=== PATIENT | male | born 1950 | race Caucasian/White ===

== ENCOUNTER 2019-11-21 10:43 | Observation (INO) ==
--- NOTE | 2019-11-21 10:57 | CT Scan Report ---
CT head/brain wo con CT DOSE: 537.48 mGy.cm HISTORY: Mental status change Stroke Alert TECHNIQUE: Multiaxial CT images of the head were performed without the use of intravenous contrast. A dose lowering technique was utilized adhering to the principles of ALARA. Comparison: None. Findings: The paranasal sinuses and mastoid air cells are clear. The calvarium and skull base are int act. The ventricles and sulci are within normal limits. There is no mass, hematoma, midline shift, or acute infarct. 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 The ventricular system is midline. No evidence for a cute intracranial hemorrhage. Impression: 1. No acute intracranial abnormality. 2. 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 ACT 112: Negative or not required by law. The above report was generated using voice recognition software. It may contain grammatical, syntax or spelling errors. Electronically signed by: Luis Felipe Kwok M.D. 11/21/2019 10:56 AM
[2019-11-21 11:18] LABS: Hematocrit (blood only) 42.4 % (42-52); Hemoglobin 14.9 g/dL (14.0-18.0); Mean Corpuscular Hemoglobin 31.6 pg (25-34); Mean Corpuscular Hgb Conc 35.1 g/dL (32-36); Mean Platelet Volume 11.8 fL (7.4-10.4); Platelet Count 254 K/uL (130-400); RDW Coefficient of Variation 13.6 % (11.5-14.5); RDW Standard Deviation 44.7 fL (36.4-46.3); Red Blood Count 4.71 M/uL (4.7-6.1); White Blood Count 7.18 K/uL (4.8-10.8)
[2019-11-21 11:32] LABS: INR 1.1 (0.9-1.1); Partial Thromboplastin Time 27.9 Seconds (21.0-31.0); Prothrombin Time 11.2 Seconds (9.0-12.0)
[2019-11-21 11:37] LABS: Albumin Level 4.3 gm/dl (3.4-5.0); BUN Creatinine Ratio 13.5 (10-20); Calcium 9.7 mg/dl (8.5-10.1); Creatinine Clr Calc Pharmacy 52.8 ml/min; Est GFR (African American) 73.6; Est GFR (Non-African American) 63.5; Magnesium 2.3 mg/dl (1.8-2.4); Potassium 3.8 mmol/L (3.5-5.1)
[2019-11-21 11:40] LABS: Albumin Globulin Ratio 1.5 (0.9-2); Bilirubin,Total 0.6 mg/dl (0.2-1); Globulin 2.9 gm/dl (2.5-4.0); Total Protein 7.2 gm/dl (6.4-8.2)
--- NOTE | 2019-11-21 11:41 | XRay Report ---
XR chest 1V portable CLINICAL HISTORY: stroke alert mental status change COMPARISON STUDY: No previous studies for comparison. FINDINGS: The bones soft tissues and hemidiaphragms are normal. The cardiomediastinal silhouette is n ormal. The lungs are clear. The pulmonary vasculature is normal. IMPRESSION: Negative chest. ACT 112: Negative or not required by law. The above report was generated using voice recognition software. It may contain grammatical, syntax or spelling errors. Electronically signed by: Luis Felipe Kwok M.D. 11/21/2019 11:40 AM
--- NOTE | 2019-11-21 12:59 | History & Physical Report ---
Date of Service November 21, 2019 Assessment & Plan (1) Transient ischemic attack: Admit to PCU on telemetry Reviewed MRI/MRA brain head and neck Consult neurology Continue Plavix 75 p.o. daily Continue atorvastatin 40 mg p.o. nightly continue Continue vitamin B12 500 MCG's p.o. every morning Continue vitamin D 2000 units p.o. every morning Continue multivitamins 1 tablet p.o. every morning Continue omega fish oil 1000 mg p.o. daily Continue monitoring blood pressure and taking valsartan 160 mg/hydrochlorothiazide 25 mg 1 tablet p.o. daily. DVT prophylaxis SCDs and teds patient is ambulatory Full code Present on Admission?: Yes (2) Visual disturbance: Resolved Continue management as above Present on Admission?: Yes (3) Hyperlipidemia: Continue atorvastatin 40 mg p.o. nightly Lipid panel pending Present on Admission?: Yes (4) CVA, old, disturbances of vision: Continue management as the above Present on Admission?: Yes (5) Aortic regurgitation: Continue monitoring Present on Admission?: Yes (6) Hypertension: Continue valsartan 160 mg/hydrochlorothiazide 25 mg p.o. every morning Present on Admission?: Yes (7) Gout: Continue allopurinol 200 mg p.o. every afternoon. Present on Admission?: Yes History of Present Illness Chief Complaint: transient neuro deficit Primary Care Provider: Janusz Sullivan The patient is a 69 years old male with past medical history of CVA with visual disturbance in his right eye, aortic regurgitation and hypertension who presents to the emergency room with a complaint of an episode of neurological symptoms that started and hour and 10 minutes ago. Patient states that he had a history of ischemic stroke in the January 2019. Patient reports that when he had that stroke he had only symptoms with his vision in the right side. At that time patient was not given TPA because he arrived late. Since patient had this CVA he has been on Plavix. He is followed by neurologist Dr. Parra. Patient stated that he was running a treadmill when he started to notice that he could no longer see the screen and the panel in front of him. He stated that it was like a blue revision in front of him. After arrival to the emergency room his vision returned back to normal. Patient denies any difficulty of speaking, balance, moving his arms and lower extremities grimacing etc. Patient denies fever, chills, chest pain, shortness of breath, abdominal pain, frequency, urgency. His labs were reviewed reviewed which shows WBCs of 7.18, hemoglobin 14.9, hematocrit 42.4, platelets 254. PT 11.3, INR 1.1, APTT 29.1. Sodium 138, potassium 3.8, chloride 103, anion gap 4, BUN 16, creatinine 1.18, GFR 63.5 glucose 111 troponin 0.015. MRI of the brain: Chronic small vessel ischemic changes. No acute intracranial abnormality. 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 The intracranial vasculature is otherwise unremarkable. 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 Otherwise no dissection or significant stenosis or focal vessel occlusion. The case was discussed with Dr. Castro neurologist at [facility] and she recommended to do MRI/MRA brain head and neck and to continue Plavix. She recommended not to start aspirin at this time. Decision was made to admit patient to PCU on telemetry for possible stroke versus transient ischemic attack. Allergies Allergy/AdvReac Type Severity Reaction Status Date / Time No Known Allergies Allergy Verified 11/21/19 11:49 Home Medications Home Medications Medication Instructions Recorded Confirmed Type allopurinol 100 mg tablet 200 mg PO PM tab 07/02/19 11/21/19 History cholecalciferol (vitamin D3) 50 2,000 units PO QAM 07/02/19 11/21/19 History mcg (2,000 unit) capsule multivitamin 1 tab PO QAM 07/02/19 11/21/19 History omega-3 fatty acids 1,000 mg 3,000 mg PO QAM cap 07/02/19 11/21/19 History capsule valsartan 160 1 tab PO QAM 07/02/19 11/21/19 History mg-hydrochlorothiazide 25 mg tablet butenafine 1 % topical cream 1 appln TOP BID 09/04/19 11/21/19 History mecobalamin (vitamin B12) 500 mcg PO QAM 09/04/19 11/21/19 History atorvastatin 40 mg PO HS 11/21/19 11/21/19 History clopidogrel 75 mg PO QAM 11/21/19 11/21/19 History Past Med/Surg History Medical History Aortic regurgitation (Chronic) CVA, old, disturbances of vision (Chronic) Gout Hyperlipidemia (Chronic) Hypertension (Chronic) Family History Father Heart disease Mother COPD (chronic obstructive pulmonary disease) Brother Diabetes Uncle Stroke Social History Preferred Language: Persian Communication Ability: Effective Head Irrigator Required: No Beliefs That Will Affect Care: None marital status: Current Living Situation: Spouse Feels Safe at Home: Yes Smoking Status: Never smoker Second Hand Exposure: No ; Hx Alcohol Use: Yes Alcohol type: wine and hard liquor Hx Substance Use: No Review of Systems Review of Systems: All systems reviewed & are unremarkable except as noted in HPI & below Physical Exam Constitutional: WD/WN, vitals as above well developed Eyes: normal visual petersen by confrontation ENMT: external ear and nose normal, oropharynx normal Neck: trachea midline, no thyromegaly Respiratory: normal respiratory effort, lungs clear to auscultation Cardiovascular: Heart Sounds: normal S1, normal S2 and + murmur Palpation: + thrill Vessels: dorsalis pedis pulses present Gastrointestinal (Abdomen): normal bowel sounds, soft, nontender, no hepatosplenomegaly Musculoskeletal: no cyanosis or clubbing, extremities motor strength 5/5 Skin: no rashes, warm and dry Neurologic: patellar DTR's 2+ bilat, sensation intact Psychiatric: A+Ox3, euthymic affect Lymphatic: no cervical or axillary lymphadenopathy Results & Data Vital Signs (Past 12 Hours) Vital Signs Temp Pulse Pulse Resp BP BP Pulse Ox 11/21/19 11:38 51 L 20 117/71 98 11/21/19 11:30 58 L 129/75 97 11/21/19 11:17 56 L 18 147/75 H 97 11/21/19 11:02 97 11/21/19 11:00 62 18 161/84 H 97 11/21/19 10:45 36.3 C L 56 L 16 114/69 95 Code Status & VTE Plan Code Status Full code VTE Prophylaxis Plan VTE Prophylaxis will be ordered: Yes PG Care Time/CCT Total # of Minutes Spent Total Time Spent with Patient: Total time spent is greater than 50% in coordination of care (as documented) at patient's floor/unit and/or counseling patient: Coding Level of Care Code 41153 Initial Inpt Care Lvl 3 Diagnoses Transient ischemic attack G45.9 Visual disturbance H53.9 Hyperlipidemia E78.5 CVA, old, disturbances of vision I69.398; H53.9 Aortic regurgitation I35.1 Hypertension I10 Gout M10.9
[2019-11-21] MEDS ORDERED: LORazepam 1 MG/2 ML VIAL IV STA (13:02)
--- NOTE | 2019-11-21 13:11 | Emergency Department Note ---
Entered by Imelda Chapa acting as a scribe for Vickey Drake MD History of Present Illness General Chief complaint: Neuro Symptoms/Deficit Stated complaint: ALTERED VISION HX STROKE Time Seen by Provider: 11/21/19 10:50 Source: patient History of Present Illness Onset (ago): hour(s) 1 (and 10 minutes ago) Location: head and eyes Pain Consistency: + other (episode) Maximum Pain Intensity: 0 Quality: + other (neurological symptoms) Associated symptoms: + denies other symptoms (difficulty speaking, issues with his balance, difficulty moving his arms, difficulty moving his legs) and + other (left sided vision blurriness) The patient is a 69 year old male who presents to the Emergency Room with complaints of an episode of neurological symptoms starting an hour and 10 minutes ago. The patient states that he had a history of an ischemic stroke in the back of his head last January. He reports that when he had that stroke, his only symptom was a change in his vision on the right side. He notes that he was not given TPA as it was too late to. He notes that he has suffered from a right visual field deficit since then and has been on Plavix. He notes that he has been following with Dr. Parra. The patient states that today he was on the Stair Master at home when he started to notice that he could no longer see the screen and panel in front of him. He states that it was like it was blurry when it was in front of him. The patient denies difficulty speaking, issues with his balance, difficulty moving his arms, difficulty moving his legs, and doing anything different or unusual over the last few days. Home Medications Home Medications Medication Instructions Recorded Confirmed Type allopurinol 100 mg tablet 200 mg PO PM tab 07/02/19 11/21/19 History cholecalciferol (vitamin D3) 50 2,000 units PO QAM 07/02/19 11/21/19 History mcg (2,000 unit) capsule multivitamin 1 tab PO QAM 07/02/19 11/21/19 History omega-3 fatty acids 1,000 mg 3,000 mg PO QAM cap 07/02/19 11/21/19 History capsule valsartan 160 1 tab PO QAM 07/02/19 11/21/19 History mg-hydrochlorothiazide 25 mg tablet butenafine 1 % topical cream 1 appln TOP BID 09/04/19 11/21/19 History mecobalamin (vitamin B12) 500 mcg PO QAM 09/04/19 11/21/19 History atorvastatin 40 mg PO HS 11/21/19 11/21/19 History clopidogrel 75 mg PO QAM 11/21/19 11/21/19 History Allergies Allergy/AdvReac Type Severity Reaction Status Date / Time No Known Allergies Allergy Verified 11/21/19 11:49 Past Med/Surg History Medical History Aortic regurgitation (Chronic) CVA, old, disturbances of vision (Chronic) Gout Hyperlipidemia (Chronic) Hypertension (Chronic) Family History Father Heart disease Mother COPD (chronic obstructive pulmonary disease) Brother Diabetes Uncle Stroke Social History Preferred Language: Slovak Communication Ability: Effective 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 and A total of 10 systems reviewed and were otherwise negative Physical Exam Vital Signs Vital Signs - 24 hr 11/21/19 10:45 11/21/19 11:00 11/21/19 11:02 Temperature 36.3 C L Temperature Source Oral Pulse Rate 56 L Pulse Rate [Apical] 62 Pulse Rate from SpO2 Sensor Respiratory Rate 16 18 Respiratory Effort / Characteristics Respiratory Depth Normal Respiratory Pattern Blood Pressure 114/69 Blood Pressure [Right Arm] 161/84 H Blood Pressure Mean 84 Blood Pressure Mean [Right Arm] 109 Blood Pressure Position Sitting Pulse Oximetry 95 97 97 Oxygen Delivery Method Nasal Cannula Room Air Room Air Sepsis Recent Fever Within 48 Hours No Sepsis New/Unexplained Change in Mental Status No Sepsis Action Taken by Nursing No Action Required 11/21/19 11:17 11/21/19 11:30 11/21/19 11:38 Temperature Temperature Source Pulse Rate 58 L Pulse Rate [Apical] 56 L 51 L Pulse Rate from SpO2 Sensor 58 L Respiratory Rate 18 20 Respiratory Effort / Characteristics Non-Labored Spontaneous Respiratory Depth Normal Respiratory Pattern Regular Blood Pressure 129/75 Blood Pressure [Right Arm] 147/75 H 117/71 Blood Pressure Mean 89 Blood Pressure Mean [Right Arm] 99 86 Blood Pressure Position Pulse Oximetry 97 97 98 Oxygen Delivery Method Room Air Room Air Room Air Sepsis Recent Fever Within 48 Hours Sepsis New/Unexplained Change in Mental Status Sepsis Action Taken by Nursing 11/21/19 11:39 11/21/19 12:00 Temperature Temperature Source Pulse Rate 55 L 52 L Pulse Rate [Apical] Pulse Rate from SpO2 Sensor 55 L 52 L Respiratory Rate 16 Respiratory Effort / Characteristics Respiratory Depth Respiratory Pattern Blood Pressure 117/71 120/68 Blood Pressure [Right Arm] Blood Pressure Mean 83 89 Blood Pressure Mean [Right Arm] Blood Pressure Position Pulse Oximetry 98 96 Oxygen Delivery Method Sepsis Recent Fever Within 48 Hours Sepsis New/Unexplained Change in Mental Status Sepsis Action Taken by Nursing GENERAL: Patient is in no acute distress. HEENT: No acute trauma, normocephalic atraumatic, mucous membranes moist, no nasal congestion, no scleral icterus. NECK: No stridor, no adenopathy, no meningismus, trachea is midline. LUNGS: Clear to auscultation bilaterally, no wheeze, no rhonchi, breath sounds equal. HEART: Without murmurs gallops or rubs, regular rate and rhythm. ABDOMEN: Soft, nontender, bowel sounds positive, no hernias, no peritonitis. EXTREMITIES: No cyanosis or edema, full range of motion of all the joints without pain or difficulty, no signs for acute trauma. NEUROLOGIC: Oriented x 3, no acute motor or sensory deficits, no focal weakness. On visual field testing, his right sided vision in both the right and left eye is missing and the left sided vision in the left and right eye is intact. No ext remity drift. No cerebellar dysfunction. No speech slur. No facial droop. SKIN: No rash, no jaundice, no diaphoresis. Course Course 1052: The patient was evaluated in room A1. A complete history and physical exam was performed. A stroke alert was called at this time. 1057: I discussed the patient's case with Dr. Jett Winters Neurology. She said she will evaluate him via telestroke and requested I perform more in depth visual field testing. 1125: I discussed the patient's case with Dr. Jett Winters Neurology. She states that no TPA should be given at this time. She states that she is not convinced it is a new stroke, but recommends a full stroke work up in the hospital with MRI. 1150: I discussed the patient's case with Dr. Ingram [facility] Hospitalist. She will evaluate the patient for further management. 1205: I reevaluated the patient and updated him on his test results. I discussed the treatment plan with him. He verbally agrees and understands. Administered Medications Gadobutrol (Gadavist 65ml) 6.5 ml IV ONCE PRN PRN Reason: Interaction Checking Stop: 11/25/19 14:02 Last Admin: 11/21/19 14:04 Dose: 6.5 ml Documented by: [id number] Miscellaneous (Order Awaiting Action) 1 ea N/A QS FLAQUITO Stop: 12/21/19 15:59 Last Admin: 11/21/19 16:40 Dose: Not Given Documented by: [id number] Discontinued Medications Lorazepam (Ativan) 1 mg in 2 mls @ 2 mls/min IV NOW STA Stop: 11/21/19 13:03 Last Admin: 11/21/19 13:15 Dose: 2 mls/min Documented by: [id number] Miscellaneous (Order Awaiting Action) 1 ea N/A QS FLAQUITO Stop: 12/21/19 15:59 Last Admin: 11/21/19 16:40 Dose: Not Given Documented by: [id number] Medical Decision Making Differential Diagnosis Differential diagnoses include stroke, intracranial bleeding, dehydration, anemia, electrolyte imbalance, dysrhythmia, migraine. Medical Records Attestation: I reviewed the patient's medical records. Home Medications Current Medication List: was personally reviewed by me Laboratory Data Attestation: I reviewed the patient's lab results. Result diagrams: 11/21/19 11:01 11/21/19 11:01 Lab Results 11/21/19 11/21/19 11/21/19 Range/Units 10:59 11:01 11:01 WBC 7.18 (4.8-10.8) K/uL RBC 4.71 (4.7-6.1) M/uL Hgb 14.9 (14.0-18.0) g/dL Hct 42.4 (42-52) % MCV 90.0 (80-100) fL MCH 31.6 (25-34) pg MCHC 35.1 (32-36) g/dL RDW Std Deviation 44.7 (36.4-46.3) fL RDW Coeff of Zulay 13.6 (11.5-14.5) % Plt Count 254 (130-400) K/uL MPV 11.8 H (7.4-10.4) fL PT 11.2 (9.0-12.0) Seconds INR 1.1 (0.9-1.1) APTT 27.9 (21.0-31.0) Seconds PTT Ratio 1.0 Sodium (136-145) mmol/L Potassium (3.5-5.1) mmol/L Chloride (98-107) mmol/L Carbon Dioxide (21-32) mmol/L Anion Gap (3-11) BUN (7-18) mg/dl Creatinine (0.6-1.4) mg/dl POC Creatinine (0.6-1.3) mg/dl Est Cr Clr Drug Dosing ml/min Est GFR ( Amer) Est GFR (Non-Af Amer) BUN/Creatinine Ratio (10-20) Glucose (70-99) mg/dl POC Glucose 103 H (70-99) mg/dl Calcium (8.5-10.1) mg/dl Magnesium (1.8-2.4) mg/dl Total Bilirubin (0.2-1) mg/dl AST (15-37) U/L ALT (12-78) U/L Alkaline Phosphatase (45-117) U/L Total Protein (6.4-8.2) gm/dl Albumin (3.4-5.0) gm/dl Globulin (2.5-4.0) gm/dl Albumin/Globulin Ratio (0.9-2) 11/21/19 11/21/19 Range/Units 11:01 11:14 WBC (4.8-10.8) K/uL RBC (4.7-6.1) M/uL Hgb (14.0-18.0) g/dL Hct (42-52) % MCV (80-100) fL MCH (25-34) pg MCHC (32-36) g/dL RDW Std Deviation (36.4-46.3) fL RDW Coeff of Zulay (11.5-14.5) % Plt Count (130-400) K/uL MPV (7.4-10.4) fL PT (9.0-12.0) Seconds INR (0.9-1.1) APTT (21.0-31.0) Seconds PTT Ratio Sodium 138 (136-145) mmol/L Potassium 3.8 (3.5-5.1) mmol/L Chloride 103 (98-107) mmol/L Carbon Dioxide 31 (21-32) mmol/L Anion Gap 4.0 (3-11) BUN 16 (7-18) mg/dl Creatinine 1.18 (0.6-1.4) mg/dl POC Creatinine 1.1 (0.6-1.3) mg/dl Est Cr Clr Drug Dosing 52.8 ml/min Est GFR ( Amer) 73.6 Est GFR (Non-Af Amer) 63.5 BUN/Creatinine Ratio 13.5 (10-20) Glucose 111 H (70-99) mg/dl POC Glucose (70-99) mg/dl Calcium 9.7 (8.5-10.1) mg/dl Magnesium 2.3 (1.8-2.4) mg/dl Total Bilirubin 0.6 (0.2-1) mg/dl AST 27 (15-37) U/L ALT 37 (12-78) U/L Alkaline Phosphatase 86 (45-117) U/L Total Protein 7.2 (6.4-8.2) gm/dl Albumin 4.3 (3.4-5.0) gm/dl Globulin 2.9 (2.5-4.0) gm/dl Albumin/Globulin Ratio 1.5 (0.9-2) Imaging Data Radiologist's Impression: Radiology results as stated below per my review and the radiologist's interpretation: XR chest 1V portable CLINICAL HISTORY: stroke alert mental status change COMPARISON STUDY: No previous studies for comparison. FINDINGS: The bones soft tissues and hemidiaphragms are normal. The cardiomediastinal silhouette is normal. The lungs are clear. The pulmonary vasculature is normal. IMPRESSION: Negative chest. ACT 112: Negative or not required by law. The above report was generated using voice recognition software. It may contain grammatical, syntax or spelling errors. Electronically signed by: Luis Felipe Kwok M.D. 11/21/2019 11:[address] head/brain wo con CT DOSE: 537.48 mGy.cm HISTORY: Mental status change Stroke Alert TECHNIQUE: Multiaxial CT images of the head were performed without the use of intravenous contrast. A dose lowering technique was utilized adhering to the principles of ALARA. Comparison: None. Findings: The paranasal sinuses and mastoid air cells are clear. The calvarium and skull base are intact. The ventricles and sulci are within normal limits. There is no mass, hematoma, midline shift, or acute infarct. 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 The ventricular system is midline. No evidence for acute intracranial hemorrhage. Impression: 1. No acute intracranial abnormality. 2. 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 ACT 112: Negative or not required by law. The above report was generated using voice recognition software. It may contain grammatical, syntax or spelling errors. Electronically signed by: Luis Felipe Kwok M.D. 11/21/2019 10:56 AM ECG Data Attestation: I personally reviewed and interpreted this ECG as follows: Indication: + other (CVA) Rate (beats per minute): 55 Rhythm: + sinus bradycardia ECG ST segments: no ST elevation ECG Findings: + Other (QT-c 403); no PVCs Blood Pressure Blood Pressure Findings: Elevated blood pressure Blood Pressure Disposition: Referred to patients primary care provider MDM Narrative There is no leukocytosis or concerning anemia. No coagulopathy. No significant electrolyte abnormality or kidney failure. No worrisome liver enzyme elevation. EKG shows a sinus bradycardia, no acute ischemia. Cardiac enzyme testing x1 is not consistent with acute cardiac injury. Chest film does not show pneumonia or CHF. Brain CT shows no acute bleed or mass-effect. On exam, the patient did not have any focal neurologic deficits. He did have loss of his right visual petersen but this is a chronic finding from a previous stroke. There was no speech slur. Given the patient's presentation and his past history, a stroke alert was odalis cardoza. The patient was seen by the neurologist via telemedicine. tPA was not felt warranted as the vision had improved and as the only finding on examination was a loss of his right visual petersen which is chronic. A stroke work-up in the hospital was recommended. The patient was told the results of his findings. He is currently resting comfortably. I did speak with employment evaluator/case manager, the on-call hospitalist has been consulted. At this point, the cause for his presentation is unclear but his symptoms have improved and he is now feeling at baseline. Of note, the patient had been ordered for an MRI of the brain by the hospitalist. I did order for a dose of IV Ativan, 1 mg, to help with some rel axation during the MRI testing. Continuous Cardiac Monitoring: An order was placed for continuous cardiac monitoring. The monitor shows a rate of 56 with sinus bradycardia. Impression & Plan Stroke-like symptoms, Visual disturbance Discharge Plan Visit Data *Final* Discharge Date/Time: 11/21/19 13:36 Chief Complaint: Neuro Symptoms/Deficit Stated Complaint: ALTERED VISION HX STROKE ED Provider: Vickey Drake Discharge Problem: Stroke-like symptoms, Visual disturbance Patient Disposition: Admitted As Inpatient Discharge Instructions Interventions: ED Discharge Assessment Last Done: 11/21/19 13:36 The kimibe's documentation has been prepared under my direction and personally reviewed by me in its entirety. I confirm that the note above accurately reflects all work, treatment, procedures, and medical decision making performed by me.
--- NOTE | 2019-11-21 13:52 | Magnetic Resonance Report ---
MR angio head wo con HISTORY: Mental status change TIA v stroke TECHNIQUE: 3-D [id number] MRA of the brain was performed without contrast. COMPARISON STUDY: None. FINDINGS: Anterior middle cerebral circulations appear unremarkable. The vertebral basilar system ke ears unremarkable. There is occlusion of the mid aspect of the left posterior cerebral artery. Right posterior cerebral is intact. IMPRESSION: 1. Focal occlusion mid aspect left posterior cerebral artery. 2. The intracranial vasculature is otherwise unremarkable. ACT 112: Negative or not required by law. The above report was generated using voice recognition software. It may contain grammatical, syntax or spelling errors. Electronically signed by: Luis Felipe Kwok M.D. 11/21/2019 1:50 PM
[2019-11-21] MEDS ORDERED: GADOBUTROL 65ML VIAL IV PRN (14:03)
--- NOTE | 2019-11-21 14:05 | Magnetic Resonance Report ---
MR brain wo con CLINICAL HISTORY: 69 years-old Male presenting with TIA v stroke. TECHNIQUE: Multisequence, multiplanar MR imaging of the brain was performed without the use of intrav enous contrast. IV contrast: None. COMPARISON: Noncontrast CT head from earlier today. FINDINGS: Localizer images: Unremarkable. Bone marrow signal intensity within the calvarium within normal limits. Normal midline sagittal structures. Ventricles and sulci normal in size. No mass effect or midline sh ift. No restricted diffusion or hemorrhage. 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 Perive ntricular and subcortical white matter T2/FLAIR hyperintensity, nonspecific but likely indicative of chronic small vessel ischemic change. No extra-axial fluid collection. T2 skull base flow voids preserved. IMPRESSION: 1. Chronic small vessel ischemic change. No acute intracranial abnormality. 2. 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 ACT 112: Negative or not required by law. Electronically signed by: Luis Le M.D. 11/21/2019 2:03 PM
[2019-11-21] MEDS ORDERED: POLYETHYLENE (MIRALAX) 17 GM PACK PO PRN (14:20)
[2019-11-21] MEDS ORDERED: PHARMACIST DISCHARGE MED REC CONSULT PRN (14:20)
[2019-11-21] MEDS ORDERED: ALUMINUM/MAGNESIUM SUSP 30 ML UDC PO PRN (14:20)
[2019-11-21] MEDS ORDERED: ONDANSETRON INJ 2 MG/ML 2 ML VIAL IV PRN (14:20)
[2019-11-21] MEDS ORDERED: MAGNESIUM HYDROXIDE SUSP 30 ML UDC PO PRN (14:20)
[2019-11-21] MEDS ORDERED: ACETAMINOPHEN 325 MG TAB PO PRN (14:20)
--- NOTE | 2019-11-21 14:25 | Magnetic Resonance Report ---
MR angio neck wo/w con CLINICAL HISTORY: 69 years-old Male presenting with stroke like symptoms, altered mental status. TECHNIQUE: MR angiography of the neck was performed before and after the administration of intravenou s contrast. 3-D volumetric and/or maximum intensity projection (MIP) images were subsequently reconst ructed for review. IV contrast: 6.5 mL of Gadavist. Stenosis measurements were based on NASCET-like c riteria (distal lumen diameter as the denominator for stenosis measurement). COMPARISON: None. FINDINGS: Localizer images: Unremarkable. Aortic arch: Atherosclerosis of the three-vessel aortic arch. Innominate artery: Patent. Right subclavian artery: Patent. Right common carotid artery: Patent. Right internal and external carotid arteries: Right carotid bifurcation patent. Right internal and ex ternal carotid arteries widely patent. Left common carotid artery: Patent. Left internal and external carotid arteries: Left carotid bifurcation patent. Left internal and exter nal carotid arteries widely patent. Left subclavian artery: Patent. Vertebral arteries: Codominant vertebral arteries. At least 50% stenosis of the origin of the right v ertebral artery. Remainder the course of the right vertebral artery patent. Origin and course of the left vertebral artery patent. Other: Limited intracranial evaluation within normal limits. Soft tissues of the neck normal allowing for the phase of contrast. IMPRESSION: 1. At least 50% stenosis of the origin of the right vertebral artery. Otherwise no dissection, signi ficant stenosis, or focal vessel occlusion. ACT 112: Negative or not required by law. Electronically signed by: Luis Le M.D. 11/21/2019 2:24 PM
[2019-11-21 15:12] LABS: INR 1.1 (0.9-1.1); Partial Thromboplastin Ratio 1.1; Partial Thromboplastin Time 29.1 Seconds (21.0-31.0); Prothrombin Time 11.3 Seconds (9.0-12.0)
[2019-11-21] MEDS ORDERED: ATORVASTATIN 40 MG TAB PO SCH (21:00)
[2019-11-21] MEDS ORDERED: allopurinoL 100 MG TAB PO SCH (21:00)
--- NOTE | 2019-11-22 06:21 | Electrocardiogram Report ---
Test Reason : Blood Pressure : / mmHG Vent. Rate : 055 BPM Atrial Rate : 055 BPM P-R Int : 196 ms QRS Dur : 098 ms QT Int : 422 ms P-R-T Axes : 077 058 070 degrees QTc Int : 403 ms Sinus bradycardia No previous ECG available for comparison Confirmed by William Espinosa ([id number]) on 11/22/2019 6:21:19 AM Referred By: REFERRED SELF Confirmed By:William Espinosa
[2019-11-22 06:38] LABS: Estimated Average Glucose 108 mg/dl; Hemoglobin A1C 5.4 % (4.5-5.6)
[2019-11-22 07:32] LABS: Basophils # (auto) 0.02 K/uL (0-0.2); Basophils % (auto) 0.4 %; Eosinophils # (auto) 0.12 K/uL (0-0.5); Eosinophils % (auto) 2.3 %; Hematocrit (blood only) 40.5 % (42-52); Immature Granulocytes # (auto) 0.01 K/uL (0.00-0.02); Immature Granulocytes % (auto) 0.2 %; Lymphocytes # (auto) 2.29 K/uL (1.2-3.4); Lymphocytes % (auto) 43.7 %; Mean Corpuscular Hemoglobin 30.9 pg (25-34); Mean Corpuscular Hgb Conc 34.6 g/dL (32-36); Mean Corpuscular Volume 89.4 fL (80-100); Mean Platelet Volume 11.9 fL (7.4-10.4); Monocytes # (auto) 0.42 K/uL (0.11-0.59); Neutrophils # (auto) 2.38 K/uL (1.4-6.5); Neutrophils % (auto) 45.4 %; Platelet Count 221 K/uL (130-400); RDW Coefficient of Variation 13.6 % (11.5-14.5); RDW Standard Deviation 44.6 fL (36.4-46.3); Red Blood Count 4.53 M/uL (4.7-6.1); White Blood Count 5.24 K/uL (4.8-10.8)
[2019-11-22 08:02] LABS: BUN Creatinine Ratio 13.7 (10-20); Calcium 8.8 mg/dl (8.5-10.1); Creatinine Clr Calc Pharmacy 54.7 ml/min; Est GFR (African American) 76.7; Est GFR (Non-African American) 66.2; Potassium 3.7 mmol/L (3.5-5.1)
--- NOTE | 2019-11-22 08:21 | Neurology Consultation ---
Date of Consultation November 22, 2019 Assessment & Plan (1) Visual disturbance: (2) CVA, old, disturbances of vision: (3) Hypertension: Patient had the acute onset of bilateral, diffuse blurry vision during exercise the morning of November 21. He had no other neurologic symptoms. He is back to baseline with no blurry vision and has no headache pain, dizziness, or other issues. Neurologic examination is unremarkable, with no focal neurologic findings (except for the partial right homonymous hemianopsia), meningeal signs, or encephalopathy. MRI of the brain showed no stroke. MR angiography showed the old left posterior cerebral artery occlusion as before and some nonspecific narrowing in the right vertebral. Patient has a history of hypertension but his blood pressure tends to be low. In addition he has lightheadedness with standing. The etiology of his event yesterday is likely decreased perfusion/vertebral basilar insufficiency. He could have altered his pressure creating the blurry vision bilaterally. Alternatively, vasospasm could do the same thing and he did have a haddad in his vision which is much like an aura. He did not have headache however. Therefore, I do not believe this is a traditional TIA. 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 This is stable. Recommendations: 1. Continue clopidogrel 75 mg daily. 2. Consider lowering the dose of his antihypertensive so he is not so hypotensive. Encourage p.o. fluids to prevent lightheadedness with standing also. 3. I see no need for additional neurologic testing at this time. Follow-up with Dr. Parra as an outpatient. Overall, I spent a total of 90 minutes with this case including review of records, review of MRI films, direct evaluation the patient at bedside, and discussing the case with the patient and his at bedside as well as Dr. Hubbard including differential diagnosis and treatment options. History of Present Illness Reason for Consultation: Patient is a 69-year-old, who I was asked to see at the request of Dr. Pino, for neurologic consultation regarding TIA versus other Requesting Physician: Dr. Pino Attending Physician: Molina Hubbard, DO History of Present Illness This patient has a history of hypertension, dyslipidemia, new aortic regurgitation followed by Cardiology. He has a history of B12 deficiency gout. In 2009, he was diagnosed with prostate cancer but is low grade and he is not any specific treatment for this (just followed). In January of 2019, 1 day he noted that he could not see off to the right very well. He also had some short-term memory problems. He was not sure how long that was going on for but probably was a day or so by the time he got to the emergency room and had an evaluation. This was in [place]. MRI of the brain showed an acute left occipital CVA. MR angiography of the head neck showed some nonspecific narrowing in the ICAs bilaterally (less than 50%) and a left P2 occlusion. He was put on Plavix and aspirin. Echocardiogram was unremarkable for PFO or thrombus but the patient has aortic regurgitation. CT scan of the chest abdomen and pelvis were unremarkable and he was discharged. He has been in the [facility] since February of 2019 and was put on Plavix alone after seeing Corie Castro, neurologist [facility]. Patient was followed up by Cardiology and had a 30 day monitor which showed no occult atrial fibrillation. The aortic regurgitation is just being followed. Patient was doing well with his vision issues off to the right as is only residual. Blood November 21, the patient was at the [facility] on the exercise bike for 20 minutes. Around 0945 he went on the Stair master. After a few minutes on this he had the sudden onset of blurry vision in both eyes including all petersen symmetrically. He had a halo haddad in a large irregular ione in his vision centrally. There was no double vision or other loss of vision. There was no headache, lightheadedness, or vertigo. He had no new weakness or numbness in the arms and legs and had no speech, mentation, or balance problems. They drove over to the Neurology office and the nurse told him to go to the emergency room. He arrived November 21 in the emergency room at 1045 with a temperature of 36.3, pulse 56 and regular, respiratory rate 16, blood pressure 114/64, and O2 saturation 95%. He was noted to have decreased vision off to the right as before but no new problems neurologically. His blurry vision started fading and the haddad resolved. He felt that his vision returned back to baseline sometime in the afternoon that day. He has had no further issues or problems and has been at baseline today. CBC and Chem profile were unremarkable. Glucose was 111 hemoglobin A1c was 5.4. Chest x-ray was unremarkable CT scan of the head showed the old left posterior cerebral artery stroke as before. MR angiography of the head and neck were unremarkable except for occlusion of the left posterior cerebral artery as before and some less than 50% stenosis at the origin of the right vertebral. There was no stenosis in the internal carotid arteries bilaterally. MRI of the brain showed no new stroke. There was the old left occipital stroke and some very mild nonspecific small vessel ischemic changes in the white matter diffusely. I reviewed these films. Today blood pressure is 104/64. Echocardiogram was unremarkable except for some mild aortic regurgitation. Allergies Allergy/AdvReac Type Severity Reaction Status Date / Time No Known Allergies Allergy Verified 11/21/19 11:49 Home Medications Home Medications Medication Instructions Recorded Confirmed Type allopurinol 100 mg tablet 200 mg PO PM tab 07/02/19 11/21/19 History cholecalciferol (vitamin D3) 50 2,000 units PO QAM 07/02/19 11/21/19 History mcg (2,000 unit) capsule multivitamin 1 tab PO QAM 07/02/19 11/21/19 History omega-3 fatty acids 1,000 mg 3,000 mg PO QAM cap 07/02/19 11/21/19 History capsule valsartan 160 1 tab PO QAM 07/02/19 11/21/19 History mg-hydrochlorothiazide 25 mg tablet butenafine 1 % topical cream 1 appln TOP BID 09/04/19 11/21/19 History mecobalamin (vitamin B12) 500 mcg PO QAM 09/04/19 11/21/19 History atorvastatin 40 mg PO HS 11/21/19 11/21/19 History clopidogrel 75 mg PO QAM 11/21/19 11/21/19 History Patient History Medical History Aortic regurgitation (Chronic) CVA, old, disturbances of vision (Chronic) Gout Hyperlipidemia (Chronic) Hypertension (Chronic) Family History Father , age 63 of congestive heart failure. 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 Hx Substance Use: No Review of Systems Constitutional: no fever, no fatigue and no weakness Eyes: + blind spots (Cannot see well to the right.); no diplopia, no eye pain and no worsening vision Ear, Nose, Mouth, Throat: no ear pain, no tinnitus, no hearing loss, no dizziness, no snoring, no hoarseness and no dysphagia Respiratory: no cough and no dyspnea Cardiovascular: no chest pain, no palpitations and no lightheadedness Gastrointestinal: no abdominal pain, no nausea and no vomiting Genitourinary: no dysuria and no urinary incontinence Musculoskeletal: no back pain, no neck pain, no radicular pain, no joint pain and no myalgia Integumentary: no rash and no lesions Neurologic: + dizziness (Patient has some occasional lightheadedness with standing but no vertigo.); no gait abnormality, no localized weakness, no generalized weakness, no tingling, no numbness, no tremor(s), no abnormal movements, no headache(s), no abnormal speech, no confusion and no memory loss Psychiatric: no depression, no irritability, no anxiety, no difficulty concentrating, no confusion and no hallucinations Endocrine: no fatigue and no flushing Hematologic / Lymphatic: no easy bleeding and no easy bruising Allergy / Immunological: no urticaria and no problem reported Physical Exam Physical Exam: The patient is right-handed. The patient is awake, alert, and attentive. Speech is normal without any aphasia or dysarthria. he can name objects, repeat phrases, and has normal spontaneous speech. Mentation and thought processes are intact, with orientation to person, place and time, and normal fund of knowledge. Attention and concentration are normal. Mood and affect are normal and appropriate. General appearance and grooming are normal. Short and long-term memory are intact to conversation. The discs are sharp with positive venous pulsations bilaterally. There are no exudates, hemorrhages, or blood vessel changes seen. Pupils are 4 mm bilaterally and reactive to light. Extraocular eye muscles are intact without nystagmus. He has an irregular hemianopsia off to the right in both eyes. There are no deficits to sensation in the face in all 3 distributions of the fifth cranial nerve bilaterally. Corneal reflexes are positive bilaterally. Facial strength and symmetry was normal bilaterally. Hearing seems normal to whisper and finger rub bilaterally. Palate moves well without asymmetry. There is normal sternocleidomastoid and trapezius (shoulder shrug) strength bilaterally. Tongue is midline with good strength bilaterally. Neck has a full range of motion without discomfort. There are no cervical bruits bilaterally. There are no cranial or ocular bruits. Heart is without murmur. There is a regular rhythm and rate. Cervical, thoracic, and lumbar spine are nontender to palpation. Gait is narrow based, with good arm swing, turns, and stance. Balance is normal eyes open or closed. With outstretched arms there is no drift. There are no resting, postural, or action tremors. There is no ataxia with finger to nose testing. There is good facility in the hands. No other abnormal involuntary movements are noted. Motor strength is 5/5 diffusely in the arms bilaterally including deltoids, biceps, triceps, brachioradialis, wrist flexors and extensors, treating plant operator, and intrinsic hand muscles. Motor strength is 5/5 diffusely in the legs bilaterally including hip flexors, quadriceps, hamstrings, gastrocnemius, tibialis anterior, tibialis posterior, and Peroneii muscles. Toe extensors are normal and there is good bulk in the extensor digitorum brevis muscles bilaterally. The limbs have good tone without rigidity or spasticity. There is no atrophy noted in the muscles. Muscle bulk is normal, there is no tenderness to palpation, no myotonia to percussion, and no fasciculations seen. Sensory examination is intact to touch and pin throughout all 4 limbs diffusely. Reflexes are 1/4 in the biceps, triceps, brachioradialis, quadriceps, and Achilles tendons bilaterally. There is no clonus bilaterally. Toes are downgoing with plantar stimulation bilaterally. Peripheral pulses are present and of normal quality distally in all 4 limbs. There is no peripheral edema noted in the limbs. Results & Data Vital Signs (Past 12 Hours) Vital Signs Temp Pulse Pulse Resp BP Pulse Ox 11/22/19 07:10 36.6 C 94 H 18 104/64 94 11/22/19 03:45 36.6 C 58 L 18 122/70 94 11/21/19 23:46 36.7 C 53 L 18 102/60 95 Diagnostic Findings MR brain wo con CLINICAL HISTORY: 69 years-old Male presenting with TIA v stroke. TECHNIQUE: Multisequence, multiplanar MR imaging of the brain was performed without the use of intravenous contrast. IV contrast: None. COMPARISON: Noncontrast CT head from earlier today. FINDINGS: Localizer images: Unremarkable. Bone marrow signal intensity within the calvarium within normal limits. Normal midline sagittal structures. Ventricles and sulci normal in size. No mass effect or midline shift. No restricted diffusion or hemorrhage. 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 Periventricular and subcortical white matter T2/FLAIR hyperintensity, nonspecific but likely indicative of chronic small vessel ischemic change. No extra-axial fluid collection. T2 skull base flow voids preserved. IMPRESSION: 1. Chronic small vessel ischemic change. No acute intracranial abnormality. 2. 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 ACT 112: Negative or not required by law. Electronically signed by: Luis Le M.D. PG Care Time/CCT Total # of Minutes Spent Total Time Spent with Patient: Total time spent is greater than 50% in coordination of care (as documented) at patient's floor/unit and/or counseling patient: Coding Level of Care Code 78341 OBS Care - Level 3 Diagnoses Visual disturbance H53.9 CVA, old, disturbances of vision I69.398; H53.9 Hypertension I10 Time Spent (min) 90
[2019-11-22] MEDS ORDERED: VALSARTAN 80 MG TAB PO SCH ×2 (09:00→09:15)
[2019-11-22] MEDS ORDERED: MULTIVITAMIN TAB PO SCH (09:00)
[2019-11-22] MEDS ORDERED: CYANOCOBALAMIN 500 MCG TABLET (VITAMIN B-12) PO SCH (09:00)
[2019-11-22] MEDS ORDERED: OMEGA-3 (PURIFIED FISH OIL) 1 GM CAP PO SCH (09:00)
[2019-11-22] MEDS ORDERED: CHOLECALCIFEROL 1,000 UNITS 25 MCG TAB PO SCH (09:00)
[2019-11-22] MEDS ORDERED: CLOPIDOGREL BISULFATE 75 MG TAB PO SCH (09:00)
[2019-11-22] MEDS ORDERED: hydroCHLOROthiazide 25 MG TAB PO SCH (09:00)
[2019-11-22] MEDS ORDERED: STROKE PATIENT DISCHARGE STA (11:39)
--- NOTE | 2019-11-22 15:47 | Discharge Summary ---
Date of Service November 22, 2019 Admission HPI Per Admitting Provider The patient is a 69 years old male with past medical history of CVA with visual disturbance in his right eye, aortic regurgitation and hypertension who presents to the emergency room with a complaint of an episode of neurological symptoms that started and hour and 10 minutes ago. Patient states that he had a history of ischemic stroke in the January 2019. Patient reports that when he had that stroke he had only symptoms with his vision in the right side. At that time patient was not given TPA because he arrived late. Since patient had this CVA he has been on Plavix. He is followed by neurologist Dr. Parra. Patient stated that he was running a treadmill when he started to notice that he could no longer see the screen and the panel in front of him. He stated that it was like a blue revision in front of him. After arrival to the emergency room his vision returned back to normal. Patient denies any difficulty of speaking, balance, moving his arms and lower extremities grimacing etc. Patient denies fever, chills, chest pain, shortness of breath, abdominal pain, frequency, urgency. His labs were reviewed reviewed which shows WBCs of 7.18, hemoglobin 14.9, hematocrit 42.4, platelets 254. PT 11.3, INR 1.1, APTT 29.1. Sodium 138, potassium 3.8, chloride 103, anion gap 4, BUN 16, creatinine 1.18, GFR 63.5 glucose 111 troponin 0.015. MRI of the brain: Chronic small vessel ischemic changes. No acute intracranial abnormality. 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 The intracranial vasculature is otherwise unremarkable. 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 Otherwise no dissection or significant stenosis or focal vessel occlusion. The case was discussed with Dr. Castro neurologist at [facility] and she recommended to do MRI/MRA brain head and neck and to continue Plavix. She recommended not to start aspirin at this time. Decision was made to admit patient to PCU on telemetry for possible stroke versus transient ischemic attack. Admission Exam Per Admitting Provider Constitutional: WD/WN, vitals as above well developed Eyes: normal visual petersen by confrontation ENMT: external ear and nose normal, oropharynx normal Neck: trachea midline, no thyromegaly Respiratory: normal respiratory effort, lungs clear to auscultation Cardiovascular: Heart Sounds: normal S1, normal S2 and + murmur Palpation: + thrill Vessels: dorsalis pedis pulses present Gastrointestinal (Abdomen): normal bowel sounds, soft, nontender, no hepatosplenomegaly Musculoskeletal: no cyanosis or clubbing, extremities motor strength 5/5 Skin: no rashes, warm and dry Neurologic: patellar DTR's 2+ bilat, sensation intact Psychiatric: A+Ox3, euthymic affect Lymphatic: no cervical or axillary lymphadenopathy Principal Diagnosis Stroke Like Symptoms Discharge Exam General: Resting comfortably HEENT: NC/AT; PERRLA with EOMI; Lafe conjunctiva, MMM. No erythema of posterior pharynx Neck: Supple and nontender Cardiac: RRR Lungs: CTA bilaterally Abdomen: Bowel normoactive X 4; Nontender to palpation Extremities: Warm. No edema present Neuro: No focal weakness Skin: No rash Discharge Data Allergies Allergy/AdvReac Type Severity Reaction Status Date / Time No Known Allergies Allergy Verified 11/21/19 11:49 Consultations 11/21/19 11:52 ED Decision to Admit Stat 11/21/19 14:20 Consult Case Management - Discharge Planning Routine Consult Neurology Routine Ordered Studies 11/21/19 10:49 CT head/brain wo con Stat CXR 11/21/19 12:42 MR angio head wo con Stat MR angio neck wo/w con Stat MR brain wo con Stat Hospital Course (1) Stroke-like symptoms: Presented with vision loss at home, concern for TIA vs. CVA. MRI brain showed old infarct in paramedian left occipital lobe. MRA head/neck showed focal occlusion in mid aspect left posterior cerebral artery, otherwise negative. Echo showed EF 65-70%, no wall motion abnormalities. Continued home statin and Plavix. No indication for ASA therapy. Neuro consulted, no indication for further work up. Do recommend decreasing BP meds to avoid hypotension/dizziness. Symptoms resolved within a few hours and pt. was stable for discharge to home on 11/22/19. (2) Visual disturbance: Resolved, see above. (3) Hyperlipidemia: Continued statin. Lipid panel showed LDL 36, Chol 94, HDL 44. (4) CVA, old, disturbances of vision: Continued home Plavix and statin. H/o CVA in January 2019. (5) Hypertension: On Valsartan/HCTZ 160/25 at home. Pt. was previously on 80/12.5 prior to CVA in January 2019 then dose was increased. BP remained low during this admission. Will d/c HCTZ and decrease Valsartan to 80 mg daily. (6) Gout: Continued allopurinol daily. Discharged to home on 11/22/19. Total Time Total Time Spent Total Time Spent (In Minutes): >30 minutes Total Time Includes: Examination of the Patient, Discharge Planning, Medication Reconciliation, Communication With Other Providers and Other Discharge Plan Discharge Items Patient Disposition: Home - Self-Care Reason For Visit: TIA Discharge Diagnosis: Stroke Like Symptoms Condition on Discharge: Good Goals: You have been hospitalized for an acute medical problem. During your stay at [facility], we have made an effort to correct the problem that brought you to the hospital while keeping you as comfortable as possible. Medications were used to bring your condition under control and your discharge instructions will include directions for any medications you should take after leaving the hospital. Please make sure you see your Primary Care Provider as part of your follow up plan. Activity: As commented below Exercise/Sports: Gradually increase as tolerated Non-emergency contact: Primary Care Provider Call non-emergency contact if: you have any medication questions, your symptoms worsen and you have a fever Follow-up/Referrals: Janusz Sullivan [Primary Care Provider] - Diet: Heart Healthy Addtl Attending Provider Instructions: 1. Stroke like symptoms * Stroke work up was negative during this admission. * Please continue home medications as prescribed. 2. Hypertension * Please discontinue previous home BP med -- HCTZ/Valsartan -- and start Valsartan single agent therapy 80 mg daily. * Continue to monitor blood pressure at home and record all readings -- bring records to your next PCP appointment. 3. Please schedule appointment with PCP in 1-2 weeks to discuss this hospital admission. Additional preventative stroke instructions: Activation of Emergency Medical System: Call 911, immediately, if you experience any of the following: Warning Signs and Symptoms of Stroke: * Sudden numbness or weakness of the face, arm or leg, especially on one side of the body * Sudden confusion, trouble speaking or understanding * Sudden trouble seeing in one or both eyes * Sudden trouble walking, dizziness, loss of balance or coordination * Sudden severe headache with no cause Do not delay calling 911 if you experience any warning signs or symptoms of a stroke. Delay in seeking medical attention may affect what treatments can be given to you. Risk Factors for Stroke: You can reduce your chances of stroke by working with your medical provider to adopt a healthy lifestyle. Some specific ways to lower your chance of stroke are: * If you are a smoker, now is the time to stop smoking cigarettes * If you are diabetic, improve the control of your blood sugars * Avoid excessive amounts of alcohol * Control high blood pressure * Lose weight if you are overweight * Be sure to lead an active lifestyle * Eat a healthy diet low in salt, cholesterol and fat You should know about other risk factors for stroke that you are unable to control. These include: * Age 55 years or older * Male gender * Certain racial groups: , or / * Family History of Stroke, Mini stroke or Heart Attack * Sickle Cell Disease Follow Up: It is important for you to keep your follow up appointments with your medical provider. Who to Call and When: Medical Emergencies: Call 911 immediately if you experience any of the following warning signs and symptoms of Stroke: * Sudden numbness or weakness of the face, arm or leg, especially on one side of the body * Sudden confusion, trouble speaking or understanding * Sudden trouble seeing in one or both eyes * Sudden trouble walking, dizziness, loss of balance or coordination * Sudden severe headache with no cause Do not delay calling 911 if you experience any warning signs or symptoms of a stroke. Delay in seeking medical attention may affect what treatments can be given to you. Pending Studies at Discharge: No Stand-Alone Forms: My [facility] Medications and DC Order Prescriptions: New valsartan [Diovan] 80 mg Tablet 80 mg PO QAM Qty: 30 RF: 2 Continued allopurinol 100 mg tablet 200 mg PO PM RF: 0 cholecalciferol (vitamin D3) 2,000 unit capsule 2,000 units PO QAM RF: 0 multivitamin tablet 1 tab PO QAM RF: 0 omega-3 fatty acids [Fish Oil Concentrate] 1,000 mg capsule 3,000 mg PO QAM RF: 0 butenafine [Lotrimin Ultra] 1 % cream 1 appln TOP BID RF: 0 mecobalamin (vitamin B12) 500 mcg PO QAM RF: 0 atorvastatin 40 mg tablet 40 mg PO HS RF: 0 clopidogrel 75 mg tablet 75 mg PO QAM RF: 0 Discontinued valsartan-hydrochlorothiazide 160-25 mg tablet 1 tab PO QAM RF: 0 Discharge Orders: Discharge Order (Routine); Ordered 11/22/19 Ordered By: Charis Zhao Admission Data Admit Date/Time: 11/21/19 12:58 Attending Provider: Molina Hubbard Admit Provider: Sherif Pino Primary Care Provider: Janusz Sullivan Other Providers: Sherif Pino ; Finn Pollock III Other Interventions: Discharge Summary Assessment (RN) Last Done: 11/22/19 11:58 DC Date/Time DO NOT enter until pt leaves facility: 11/22/19 12:37 Supervising Physician Co-Signing Physician Notes Attending note: patient seen and examined with Charis Zhao PA-C. I agree with her discharge summary. I personally reviewed the labs and imaging findings. patient feeling well, no further blurry vision has his baseline right sided visual defect from prior stroke discussed the case with Dr. Pollock, appreciate his input no evidence of stroke on MRI, the blurry vision was likely due to decreased c erebral perfusion - Blurred vision: no evidence of stroke on MRI BP running low normal, low at times will reduced blood pressure regimen to just Valsartan 80mg daily follow up with PCP for blood pressure check on just the Valsartan he knows to no longer take the Valsartan/HCTZ combination Coding Level of Care Code D/C Day Management >30 mins Diagnoses Stroke-like symptoms R29.90 Visual disturbance H53.9 Hyperlipidemia E78.5 CVA, old, disturbances of vision I69.398; H53.9 Hypertension I10 Gout M10.9
== END 2019-11-22 12:37 | disposition home or self-care (01) ==
LOC: ED 10:43 → 2S 10:43 → SUATTDRO 12:58 → 2S 13:36